=== PATIENT | female | born 1990 | race Caucasian/White ===

== ENCOUNTER 2016-05-16 19:28 | Emergency (ER) | payer OTHER ==
[~2016-05-16] VITALS: Ht 165.1 cm; Wt 76.0 kg
[~2016-05-16 19:28] MED LIST: ETON1IMP2 INTRAD; OXYC-57 PO
[2016-05-16 19:32] VITALS: TEMP 37.4; Ht 165.1 cm; Wt 76.0 kg
[2016-05-16] MEDS ORDERED: SODIUM CHLORIDE 0.9% 1000ML 1,000 ML IV STA (20:05)
[2016-05-16] MEDS ORDERED: ONDANSETRON INJ 2 MG/ML 2 ML VIAL IV STA (20:05)
--- NOTE | 2016-05-16 20:16 | EMERGENCY ROOM VISIT NOTE ---
History Report prepared by Wesleyibcameron: Becky Espino Under the Supervision of: Dr. Tylor Fung D.O. First contact with patient: 20:01 Chief Complaint: SHORTNESS OF BREATH Stated Complaint: SOB,DIZZY,NAUSEA,STOMACH PAIN,EXHAUSTED,8 WKS PREG Nursing Triage Summary: c/o shortness of breath and cough for several days unsure if she is or not. States " have not been to the dr. because i have no insurance." History of Present Illness The patient is a 25 year old female who presents to the Emergency Room with complaints of worsening shortness of breath beginning a few days prior to arrival. The patient states that she has been experiencing increased fatigue these past few days and yesterday she slept all day. She has also been experiencing nausea, vomiting, abdominal pain, dizziness and a cough. She also has been experiencing a decreased appetite. These all have been worsening over the past few days. The patient would also like to be checked for asthma. Occasionally the patient will experiencing swelling to her lower extremities. Patient denies vaginal discharge or bleeding. Her LNMP was 1 1/2 months ago. Source of History: patient Onset: past few days Position: other (global) Quality: other (shortness of breath) Timing: worsening Associated Symptoms: + abdominal pain, + cough, + nausea, + vomiting Review of Systems See HPI for pertinent positives & negatives. A total of 10 systems reviewed and were otherwise negative. Past Medical & Surgical Medical Problems: (1) Autistic Disorder, Residual State (2) Bronchitis (3) Hemoptysis Family History Patient reports no known family medical history. Social History Smoking Status: Never Smoker Smokeless Tobacco Use: Yes (1-2 times a day) Alcohol Use: occasionally Marital Status: single Housing Status: lives alone Occupation Status: employed Current/Historical Medications Scheduled Cephalexin Monohydrate (Keflex), 500 MG PO QID Allergies Uncoded Allergies: POLLENS AND DUST (Allergy, Unknown, itchy eyes and sneezing, 08/10/14) BLOOD THINNERS (Adverse Reaction, Severe, VONWILLEBRAND DISEASE, 05/16/16) Physical Exam Vital Signs Date Time Temp Pulse Resp B/P Pulse Ox O2 Delivery O2 Flow Rate FiO2 05/16/16 19:32 37.4 106 18 126/77 98 Room Air Physical Exam GENERAL: Patient is awake, alert, and in no acute distress. Patient is resting comfortably and showing no signs of anxiety EYES: The conjunctivae are clear. The pupils are round and reactive. EARS, NOSE, MOUTH AND THROAT: The nose is without any evidence of any deformity. Mucous membranes are moist tongue is midline NECK: The neck is nontender and supple. RESPIRATORY: Normal respiratory effort is noted there is no evidence of wheezing rhonchi or rales CARDIOVASCULAR: Regular rate and rhythm noted there no murmurs rubs or gallops normal S1 normal S2 GASTROINTESTINAL: The abdomen is soft. Bowel sounds are present in all quadrants. Abdomen is nontender MUSCULOSKELETAL/EXTREMITIES: There is no evidence of gross deformity full range of motion is noted in the hips and shoulders SKIN: There is no obvious evidence of any rash. There are no petechiae, pallor or cyanosis noted. NEUROLOGIC: Patient is awake alert and oriented x3 strength is symmetric patellar reflexes are 2+ bilaterally Medical Decision & Procedures ER Provider Diagnostic Interpretation: X-ray results as stated below per interpretation by me and the radiologist. SINGLE VIEW CHEST CLINICAL HISTORY: Generalized abdominal pain. . FINDINGS: An AP, portable, upright chest radiograph is compared to study dated 04/04/2016. The cardiomediastinal silhouette is unremarkable. The lungs and pleural spaces are clear. No pneumothorax is seen. The bony thorax is grossly intact. IMPRESSION: No active disease in the chest. Electronically signed by: Atul Mcmanus M.D. 05/16/2016 9:06 PM Dictated Date/Time: 05/16/2016 9:06 PM Laboratory Results 05/16/16 20:15 Red Blood Count 4.35, Mean Corpuscular Volume 85.5, Mean Corpuscular Hemoglobin 28.5, Mean Corpuscular Hemoglobin Concent 33.3, Mean Platelet Volume 10.8, Neutrophils (%) (Auto) 62.8, Lymphocytes (%) (Auto) 28.4, Monocytes (%) (Auto) 7.1, Eosinophils (%) (Auto) 0.8, Basophils (%) (Auto) 0.6, Neutrophils # (Auto) 4.55, Lymphocytes # (Auto) 2.05, Monocytes # (Auto) 0.51, Eosinophils # (Auto) 0.06, Basophils # (Auto) 0.04 05/16/16 20:15 Test 05/16/16 20:15 White Blood Count 7.23 K/uL (4.8-10.8) Red Blood Count 4.35 M/uL (4.2-5.4) Hemoglobin 12.4 g/dL (12.0-16.0) Hematocrit 37.2 % (37-47) Mean Corpuscular Volume 85.5 fL (80-100) Mean Corpuscular Hemoglobin 28.5 pg (25-34) Mean Corpuscular Hemoglobin Concent 33.3 g/dl (32-36) Platelet Count 283 K/uL (130-400) Mean Platelet Volume 10.8 fL (7.4-10.4) Neutrophils (%) (Auto) 62.8 % Lymphocytes (%) (Auto) 28.4 % Monocytes (%) (Auto) 7.1 % Eosinophils (%) (Auto) 0.8 % Basophils (%) (Auto) 0.6 % Neutrophils # (Auto) 4.55 K/uL (1.4-6.5) Lymphocytes # (Auto) 2.05 K/uL (1.2-3.4) Monocytes # (Auto) 0.51 K/uL (0.11-0.59) Eosinophils # (Auto) 0.06 K/uL (0-0.5) Basophils # (Auto) 0.04 K/uL (0-0.2) RDW Standard Deviation 39.2 fL (36.4-46.3) RDW Coefficient of Variation 12.6 % (11.5-14.5) Immature Granulocyte % (Auto) 0.3 % Immature Granulocyte # (Auto) 0.02 K/uL (0.00-0.02) Urine Color YELLOW Urine Appearance CLOUDY (CLEAR) Urine pH 7.0 (4.5-7.5) Urine Specific [place] 1.017 (1.000-1.030) Urine Protein NEG (NEG) Urine Glucose (UA) NEG (NEG) Urine Ketones NEG (NEG) Urine Occult Blood 1+ (NEG) Urine Nitrite NEG (NEG) Urine Bilirubin NEG (NEG) Urine Urobilinogen NEG (NEG) Urine Leukocyte Esterase SMALL (NEG) Urine WBC (Auto) >30 /hpf (0-5) Urine RBC (Auto) 0-4 /hpf (0-4) Urine Hyaline Casts (Auto) 1-5 /lpf (0-5) Urine Epithelial Cells (Auto) >30 /lpf (0-5) Urine Bacteria (Auto) 4+ (NEG) Anion Gap 14.0 mmol/L (3-11) Est Creatinine Clear Calc Drug Dose 135.2 ml/min Estimated GFR () 144.3 Estimated GFR (Non- 124.5 BUN/Creatinine Ratio 14.2 (10-20) Calcium Level 9.4 mg/dl (8.5-10.1) Total Bilirubin 0.2 mg/dl (0.2-1) Direct Bilirubin < 0.1 mg/dl (0-0.2) Aspartate Amino Transf (AST/SGOT) 15 U/L (15-37) Alanine Aminotransferase (ALT/SGPT) 20 U/L (12-78) Alkaline Phosphatase 107 U/L (45-117) Total Protein 8.3 gm/dl (6.4-8.2) Albumin 4.1 gm/dl (3.4-5.0) Lipase 147 U/L (73-393) Human Chorionic Gonadotropin, Qual NEG (NEG) Urine Opiates Screen NEG (NEG) Urine Methadone, Qualitative NEG (NEG) Urine Barbiturates NEG (NEG) Urine Phencyclidine (PCP) Level NEG (NEG) Ur Amphetamine/Methamphetamine NEG (NEG) MDMA (Ecstasy) Screen NEG (NEG) Urine Benzodiazepines Screen NEG (NEG) Urine Cocaine Metabolite NEG (NEG) Urine Marijuana (THC) NEG (NEG) Laboratory results per my review. Medications Administered Medications (Trade) Dose Ordered Sig/Yasmin Route Start Time Stop Time Status Last Admin Dose Admin Sodium Chloride (Nss 1000ml) 1,000 ml @ 999 mls/hr Q1H1M STAT IV 05/16/16 20:05 05/16/16 21:05 DC 05/16/16 20:18 999 MLS/HR Ondansetron HCl (Zofran Inj) 4 mg NOW STAT IV 05/16/16 20:05 05/16/16 20:06 DC 05/16/16 20:18 4 MG Ceftriaxone Sodium (Rocephin Inj) 1 gm NOW STAT IV 05/16/16 20:56 05/16/16 20:58 DC 05/16/16 21:15 1 GM ED Course 2001: The patient was evaluated in room C8. A complete history and physical examination were performed. 2005: Zofran Inj 4 mg IV, Sodium Chloride 1,000 ml @ 999 mls/hr IV. 2055: Rocephin Inj 1 gm IV. 2122: Upon reevaluation, the patient is hemodynamically stable. I discussed the results and treatment plan with her. She verbalized agreement of the treatment plan. She was discharged home. Medical Decision Differential diagnosis: Etiologies such as infections, reactive airway disease, pneumonia, pneumothorax , COPD, CHF, cardiac ischemia, pulmonary embolism, musculoskeletal, gastrointestinal, as well as others were entertained. Differential diagnosis: Etiologies such as gastroenteritis, food borne illness, infections, appendicitis , diverticulitis, inflammatory bowel disease, obstruction, GI bleed, biliary pathology, as well as others were entertained. The patient is a 25-year-old female who presented to the emergency department with multiple complaints including nausea and generalized weakness and was unsure if she had been . The patient was treated with IV fluids as well as IV antiemetics. She was also given IV antibiotics for presumed urinary tract infection after reviewing the patient's urinalysis findings. The patient was reevaluated multiple times. She was feeling much better on subsequent reevaluation. I discussed the patient's laboratory and radiographic studies with she was encouraged to rest and avoid any strenuous activity. She was also encouraged to call to schedule a follow-up appointment with a primary care physician and continue taking Motrin as directed for pain. She was encouraged to return to the emergency department immediately if symptoms change worsen or the need arises. Impression Primary Impression: UTI (urinary tract infection) Additional Impression: Generalized weakness Scribe Attestation The scribe's documentation has been prepared under my direction and personally reviewed by me in its entirety. I confirm that the note above accurately reflects all work, treatment, procedures, and medical decision making performed by me. Departure Information Dispostion Home / Self-Care Prescriptions Cephalexin Monohydrate (KEFLEX) 500 Mg Cap 500 MG PO QID, #28 CAP Prov: Tylor Fung, DO 05/16/16 Referrals No Doctor, Assigned (PCP) Forms HOME CARE DOCUMENTATION FORM, IMPORTANT VISIT INFORMATION, Work Instructions Patient Instructions My [facility], Urinary Tract Infection - [facility] Additional Instructions Schedule follow-up appointment with the family doctor for as soon as possible. Drink plenty of clear liquids. Continue using Motrin as directed for pain. Rest and avoid any strenuous activity. Problem Qualifiers
[2016-05-16 20:32] LABS: BASO % 0.6 %; BASO ABS # 0.04 K/uL (0-0.2); COMPLETE YES; EOS % 0.8 %; HEMATOCRIT 37.2 % (37-47); IG% 0.3 %; LYMPH % 28.4 %; LYMPH ABS # 2.05 K/uL (1.2-3.4); MEAN CELL VOLUME 85.5 fL (80-100); MEAN CORPUSCULAR HEMOGLOBIN 28.5 pg (25-34); MEAN CORPUSCULAR HGB CONC 33.3 g/dl (32-36); MEAN PLATELET VOLUME 10.8 fL (7.4-10.4); MONO % 7.1 %; NEUT % 62.8 %; PLATELET COUNT 283 K/uL (130-400); RED BLOOD COUNT 4.35 M/uL (4.2-5.4); WHITE BLOOD COUNT 7.23 K/uL (4.8-10.8)
[2016-05-16 20:39] LABS: URINE APPEARANCE CLOUDY (CLEAR); URINE BILIRUBIN NEG (NEG); URINE COLOR YELLOW; URINE EPITHELIAL CELL AUTO >30 /lpf (0-5); URINE NITRITE NEG (NEG); URINE SPECIFIC GRAVITY 1.017 (1.000-1.030); UROBILINOGEN NEG (NEG)
[2016-05-16 20:41] LABS: MANUAL MICROSCOPIC REQUIRED? NO; REVIEW REQ? NO
[2016-05-16 20:56] LABS: ALT/SGPT 20 U/L (12-78); BLOOD UREA NITROGEN 9 mg/dl (7-18); BUN/CREATININE RATIO 14.2 (10-20); CALCIUM 9.4 mg/dl (8.5-10.1); CARBON DIOXIDE 24 mmol/L (21-32); CHLORIDE 103 mmol/L (98-107); CREATININE 0.66 mg/dl (0.60-1.20); GLUCOSE 99 mg/dl (70-99); POTASSIUM 3.7 mmol/L (3.5-5.1); SODIUM 141 mmol/L (136-145)
[2016-05-16] MEDS ORDERED: CEFTRIAXONE SOD INJ 1 GM ADDVIAL IV STA (20:56)
[2016-05-16 20:59] LABS: ALKALINE PHOSPHATASE 107 U/L (45-117); AST/SGOT 15 U/L (15-37)
[2016-05-16 21:04] LABS: PREG INTERNAL NEGATIVE QC NEG CLEAR BACKGROUND; PREG INTERNAL POSITIVE QC POS CONTROL LINE
--- NOTE | 2016-05-16 21:08 | DIAGNOSTIC IMAGING REPORT ---
SINGLE VIEW CHEST CLINICAL HISTORY: Generalized abdominal pain. . FINDINGS: An AP, portable, upright chest radiograph is compared to study dated 04/04/2016. The cardiomediastinal silhouette is unremarkable. The lungs and pleural spaces are clear. No pneumothorax is seen. The bony thorax is grossly intact. IMPRESSION: No active disease in the chest. Electronically signed by: Atul Mcmanus M.D. 05/16/2016 9:06 PM Dictated Date/Time: 05/16/2016 9:06 PM
[2016-05-16 21:12] LABS: BENZODIAZEPINE, URINE NEG (NEG); COCAINE,URINE NEG (NEG); PHENCYCLIDINE, URINE NEG (NEG)
[2016-05-16] MEDS ORDERED: CEPH500C2 PO (21:22)
[2016-05-16 21:45] VITALS: BP 115/66; PULSE 80; O2SAT 97
== END 2016-05-16 21:45 | disposition home or self-care (01) ==
LOC: C.EDB 19:29 → C.EDC 21:45
DX: N39.0 Urinary tract infection, site not specified (principal); R53.1 Weakness; F84.0 Autistic disorder

== ENCOUNTER 2016-06-09 15:30 | Emergency (ER) | payer OTHER ==
[~2016-06-09] VITALS: Ht 167.6 cm; Wt 78.7 kg
[~2016-06-09 15:30] MED LIST changes: +CEPH500C2 PO; -ETON1IMP2 INTRAD; -OXYC-57 PO
[2016-06-09] MEDS: ONDANSETRON INJ 2 MG/ML 2 ML VIAL IV STA ×2 (15:30→16:30)
[2016-06-09] MEDS: SODIUM CHLORIDE 0.9% 1000ML 1,000 ML IV STA ×2 (15:30→16:30)
[2016-06-09 15:33] VITALS: Ht 167.6 cm; Wt 78.7 kg
[2016-06-09 16:20] LABS: BASO % 0.2 %; BASO ABS # 0.02 K/uL (0-0.2); COMPLETE YES; EOS % 0.3 %; HEMATOCRIT 35.9 % (37-47); IG% 0.3 %; LYMPH % 19.1 %; LYMPH ABS # 2.13 K/uL (1.2-3.4); MEAN CELL VOLUME 84.7 fL (80-100); MEAN CORPUSCULAR HEMOGLOBIN 28.3 pg (25-34); MEAN CORPUSCULAR HGB CONC 33.4 g/dl (32-36); MEAN PLATELET VOLUME 10.8 fL (7.4-10.4); MONO % 5.3 %; NEUT % 74.8 %; PLATELET COUNT 239 K/uL (130-400); RED BLOOD COUNT 4.24 M/uL (4.2-5.4); WHITE BLOOD COUNT 11.15 K/uL (4.8-10.8)
[2016-06-09 16:44] LABS: CALCIUM 8.9 mg/dl (8.5-10.1); CREATININE 0.61 mg/dl (0.60-1.20); POTASSIUM 3.5 mmol/L (3.5-5.1)
[2016-06-09 16:46] LABS: ALB/GLOB RATIO 0.9 (0.9-2)
[2016-06-09 18:02] LABS: URINE APPEARANCE CLOUDY (CLEAR); URINE BILIRUBIN NEG (NEG); URINE COLOR YELLOW; URINE EPITHELIAL CELL AUTO >30 /lpf (0-5); URINE NITRITE NEG (NEG); URINE SPECIFIC GRAVITY 1.019 (1.000-1.030); UROBILINOGEN NEG (NEG); ZZUR CULT IF INDIC CLEAN CATCH YES
[2016-06-09 18:07] LABS: MANUAL MICROSCOPIC REQUIRED? NO; REVIEW REQ? YES
[2016-06-09 18:23] LABS: URINE MUCUS PRESENT (NONE PRSENT)
--- NOTE | 2016-06-09 19:55 | DIAGNOSTIC IMAGING REPORT ---
RENAL ULTRASOUND HISTORY: Flank pain flank pain COMPARISON: None. FINDINGS: Right kidney: Maximum dimension 9.7 cm. No evidence for hydronephrosis. Normal corticomedullary differentiation and cortical thickness. Left kidney: Maximum dimension 11.0 cm. No evidence for hydronephrosis. Normal corticomedullary differentiation and cortical thickness. Bladder: No bladder wall thickening. The bilateral ureteral jets were identified. IMPRESSION: Normal renal ultrasound. Electronically signed by: Travis Bess M.D. 06/09/2016 7:54 PM Dictated Date/Time: 06/09/2016 7:53 PM
--- NOTE | 2016-06-09 19:57 | DIAGNOSTIC IMAGING REPORT ---
EXAMINATION: PELVIC ULTRASOUND CLINICAL HISTORY: pelvic pain PAIN COMPARISON STUDY: None FINDINGS: The uterus measured 8.1 cm. The endometrial stripe measured 3 mm. The right ovary measured 4.0 cm maximum dimension 3.0 cm cyst. Normal vascular flow.. The left ovary measured maximum dimension 3.5 cm. Normal vascular flow. There is no ultrasonographic evidence of ovarian torsion. It should be noted that ovarian torsion can be present with normal Doppler ultrasonographic findings. There was no evidence of pathologic free pelvic fluid. IMPRESSION: 1. 3.0 cm right ovarian cyst. 2. Otherwise negative pelvic ultrasound Electronically signed by: Travis Bess M.D. 06/09/2016 7:55 PM Dictated Date/Time: 06/09/2016 7:54 PM
--- NOTE | 2016-06-09 20:29 | EMERGENCY ROOM VISIT NOTE ---
History First contact with patient: 15:41 Chief Complaint: FLANK PAIN Stated Complaint: PAIN IN SIDES, VOMITING, 10-12 WKS. History of Present Illness The patient is a 25 year old female who presents to the Emergency Department by private vehicle for evaluation of her flank pain and pelvic pain. She reports that she may be . She has not taken home test. She reports that her last menstrual period was September. She denies any vaginal bleeding or spotting. She denies any vaginal discharge or drainage. She reports no burning with urination or blood in her urine. She reports no upper abdominal pain. She denies any previous abdominal surgeries. She does report a significant past medical history of von Willebrand's disease. She rates her current discomfort as an 8/10. She denies any fevers, chills, headaches, distance, lightheadedness, chest pain, palpitations, shortness of breath, hemoptysis, nausea, vomiting, hematochezia, or melena. Review of Systems A complete 10-point Review of Systems was discussed with the patient, with pertinent positives and negatives listed in the History of Present Illness. All remaining Review of Systems questions can be considered negative unless otherwise specified. Past Medical/Surgical History Medical Problems: (1) Autistic Disorder, Residual State (2) Bronchitis (3) Hemoptysis Family History Patient reports no known family medical history. Social History Smoking Status: Never Smoker Alcohol Use: occasionally Marital Status: single Housing Status: lives alone Occupation Status: employed Current/Historical Medications No Active Prescriptions or Reported Meds Allergies Uncoded Allergies: POLLENS AND DUST (Allergy, Unknown, itchy eyes and sneezing, 08/10/14) BLOOD THINNERS (Adverse Reaction, Severe, VONWILLEBRAND DISEASE, 05/16/16) Physical Exam Vital Signs Date Time Temp Pulse Resp B/P Pulse Ox O2 Delivery O2 Flow Rate FiO2 06/09/16 20:55 36.9 81 18 115/72 99 06/09/16 20:54 81 115/72 99 Room Air 06/09/16 20:15 77 18 115/69 99 06/09/16 18:11 88 18 96/64 98 Room Air 06/09/16 15:33 36.9 110 16 112/78 95 Room Air Pain Rating (0-10): 8 Physical Exam VITAL SIGNS - Vital signs and nursing notes were reviewed. GENERAL - 25-year-old female appearing her stated age who is in no acute distress. Communicates well with provider and answers questions appropriately. LUNGS - Chest wall symmetric without accessory muscle use, intercostals retractions, or central cyanosis. Normal vesicular breath sounds CTA B/L. No wheezes, rales, or rhonchi appreciated. CARDIAC - RRR with S1/S2. No murmur, rubs, or gallops appreciated. ABDOMEN - Abdominal contour flat and without pulsations or visible masses. Negative Gaylord's or [place] Flowers's Signs. BS normoactive all four quadrants. Mild tenderness to palpation appreciated in the suprapubic area. No guarding. No Rebound Tenderness. Negative Rovsing's. Negative Norris's. No palpable masses , hepatosplenomegaly, or ascites noted. EXTREMITIES - No clubbing or peripheral cyanosis. No pretibial edema present. +3 /5 radial and dorsalis pedis pulses palpated throughout. PSYCH - A&Ox3 and cooperates fully with examiner. Pt is very pleasant and interacts well with examiner. Medical Decision & Procedures ER Provider Diagnostic Interpretation: Radiological imaging and reports were reviewed by myself. Radiologist's Interpretation as follows: EXAMINATION: PELVIC ULTRASOUND CLINICAL HISTORY: pelvic pain PAIN COMPARISON STUDY: None FINDINGS: The uterus measured 8.1 cm. The endometrial stripe measured 3 mm. The right ovary measured 4.0 cm maximum dimension 3.0 cm cyst. Normal vascular flow.. The left ovary measured maximum dimension 3.5 cm. Normal vascular flow. There is no ultrasonographic evidence of ovarian torsion. It should be noted that ovarian torsion can be present with normal Doppler ultrasonographic findings. There was no evidence of pathologic free pelvic fluid. IMPRESSION: 1. 3.0 cm right ovarian cyst. 2. Otherwise negative pelvic ultrasound RENAL ULTRASOUND HISTORY: Flank pain flank pain COMPARISON: None. FINDINGS: Right kidney: Maximum dimension 9.7 cm. No evidence for hydronephrosis. Normal corticomedullary differentiation and cortical thickness. Left kidney: Maximum dimension 11.0 cm. No evidence for hydronephrosis. Normal corticomedullary differentiation and cortical thickness. Bladder: No bladder wall thickening. The bilateral ureteral jets were identified. IMPRESSION: Normal renal ultrasound. Laboratory Results 06/09/16 16:01 Red Blood Count 4.24, Mean Corpuscular Volume 84.7, Mean Corpuscular Hemoglobin 28.3, Mean Corpuscular Hemoglobin Concent 33.4, Mean Platelet Volume 10.8, Neutrophils (%) (Auto) 74.8, Lymphocytes (%) (Auto) 19.1, Monocytes (%) (Auto) 5.3, Eosinophils (%) (Auto) 0.3, Basophils (%) (Auto) 0.2, Neutrophils # (Auto) 8.35, Lymphocytes # (Auto) 2.13, Monocytes # (Auto) 0.59, Eosinophils # (Auto) 0.03, Basophils # (Auto) 0.02 06/09/16 16:01 Test 06/09/16 16:01 White Blood Count 11.15 K/uL (4.8-10.8) Red Blood Count 4.24 M/uL (4.2-5.4) Hemoglobin 12.0 g/dL (12.0-16.0) Hematocrit 35.9 % (37-47) Mean Corpuscular Volume 84.7 fL (80-100) Mean Corpuscular Hemoglobin 28.3 pg (25-34) Mean Corpuscular Hemoglobin Concent 33.4 g/dl (32-36) Platelet Count 239 K/uL (130-400) Mean Platelet Volume 10.8 fL (7.4-10.4) Neutrophils (%) (Auto) 74.8 % Lymphocytes (%) (Auto) 19.1 % Monocytes (%) (Auto) 5.3 % Eosinophils (%) (Auto) 0.3 % Basophils (%) (Auto) 0.2 % Neutrophils # (Auto) 8.35 K/uL (1.4-6.5) Lymphocytes # (Auto) 2.13 K/uL (1.2-3.4) Monocytes # (Auto) 0.59 K/uL (0.11-0.59) Eosinophils # (Auto) 0.03 K/uL (0-0.5) Basophils # (Auto) 0.02 K/uL (0-0.2) RDW Standard Deviation 39.4 fL (36.4-46.3) RDW Coefficient of Variation 12.9 % (11.5-14.5) Immature Granulocyte % (Auto) 0.3 % Immature Granulocyte # (Auto) 0.03 K/uL (0.00-0.02) Urine Color YELLOW Urine Appearance CLOUDY (CLEAR) Urine pH 6.0 (4.5-7.5) Urine Specific [place] 1.019 (1.000-1.030) Urine Protein NEG (NEG) Urine Glucose (UA) NEG (NEG) Urine Ketones NEG (NEG) Urine Occult Blood NEG (NEG) Urine Nitrite NEG (NEG) Urine Bilirubin NEG (NEG) Urine Urobilinogen NEG (NEG) Urine Leukocyte Esterase MODERATE (NEG) Urine WBC (Auto) >30 /hpf (0-5) Urine RBC (Auto) 0-4 /hpf (0-4) Urine Hyaline Casts (Auto) 1-5 /lpf (0-5) Urine Epithelial Cells (Auto) >30 /lpf (0-5) Urine Bacteria (Auto) 4+ (NEG) Urine Pathogenic Casts /lpf (0) Urine Mucus PRESENT (NONE PRSENT) Urine Yeast (Auto) (NONE PRSENT) Urine Test NEG (NEG) Anion Gap 11.0 mmol/L (3-11) Est Creatinine Clear Calc Drug Dose 151.8 ml/min Estimated GFR () 148.1 Estimated GFR (Non- 127.8 BUN/Creatinine Ratio 12.0 (10-20) Calcium Level 8.9 mg/dl (8.5-10.1) Magnesium Level 2.0 mg/dl (1.8-2.4) Total Bilirubin 0.3 mg/dl (0.2-1) Aspartate Amino Transf (AST/SGOT) 12 U/L (15-37) Alanine Aminotransferase (ALT/SGPT) 17 U/L (12-78) Alkaline Phosphatase 103 U/L (45-117) Total Protein 7.6 gm/dl (6.4-8.2) Albumin 3.7 gm/dl (3.4-5.0) Globulin 3.9 gm/dl (2.5-4.0) Albumin/Globulin Ratio 0.9 (0.9-2) Lipase 153 U/L (73-393) Human Chorionic Gonadotropin, Quant < 1 mIU/mL Medications Administered Medications (Trade) Dose Ordered Sig/Yasmin Route Start Time Stop Time Status Last Admin Dose Admin Sodium Chloride (Nss 1000ml) 1,000 ml @ 999 mls/hr Q1H1M STAT IV 06/09/16 15:48 06/09/16 16:48 DC 06/09/16 16:30 999 MLS/HR Ondansetron HCl (Zofran Inj) 4 mg NOW STAT IV 06/09/16 15:48 06/09/16 15:50 DC 06/09/16 16:30 4 MG ED Course Patient was seen and evaluate by myself. Labs were drawn, saline lock in place. The patient was hydrated with a 1000 mL normal saline bolus. She received 4 mg Zofran intravenously for nausea. Pelvic ultrasound and renal ultrasounds were obtained. Laboratory results and showed a mild leukocytosis. The patient is not anemic. There are no significant electrolyte abnormalities. Urinalysis was unremarkable for infection. Urine dip was negative for . Quantitative urinalysis was negative as well. Imaging results as above. Laboratory results and imaging studies were reviewed with the patient who acknowledges understanding. She was educated on worrisome symptoms for return visit to the emergency department. Patient discharged home afebrile and in good condition. Medical Decision Given the patient's presentation and stated complaints, I did elect to perform the above-mentioned workup. The patient presents today complaining of pelvic pain. She has no vaginal bleeding or discharge. Patient is requesting testing. testing was completely negative. She has a mild leukocytosis. Urinalysis does not suggest infection. Retroperitoneal ultrasound and pelvic ultrasound were obtained and found to be unremarkable. The patient follow closely with her primary care provider from today's visit. She will return for any changing/worsening symptoms. Patient discharged home afebrile and in good condition. In the evaluation and treatment of this patient, the following differential diagnoses were considered: Bladder Cancer, Chlamydial Genitourinary Infection, Cystitis, Herpes Simplex, Interstitial Cystitis, PID, Pyelonephritis, Urethritis , or Vaginitis. Impression Primary Impression: Pelvic pain Additional Impression: Flank pain Departure Information Dispostion Home / Self-Care Condition GOOD Prescriptions No Active Prescriptions or Reported Meds Referrals Tavo Durant M.D. (PCP) Patient Instructions My [facility] Additional Instructions Follow-up with your primary care provider from today's visit. For pain control, you can use the following [id number] medicines (if >12 yo): - Regular strength (325mg/tab) Tylenol (acetaminophen) 2 tabs every 4-6 hours as needed. Do not exceed 12 tablets in a 24 hour period. Avoid taking more than 4 grams (4000 mg) of Tylenol per day. This includes any other sources of acetaminophen you may take on a regular basis. - Regular strength (200 mg/tab) Advil (ibuprofen) 1-2 tabs every 4-6 hours as needed. Do not exceed a dose of 3200 mg per day. Return for any changing or worsening symptoms. Problem Qualifiers
[2016-06-09 20:55] VITALS: BP 115/72; PULSE 81; TEMP 36.9; O2SAT 99
== END 2016-06-09 20:57 | disposition home or self-care (01) ==
LOC: C.EDB 15:32 → C.EDC 20:57
DX: R10.30 Lower abdominal pain, unspecified (principal); R10.2 Pelvic and perineal pain; F84.0 Autistic disorder

== ENCOUNTER 2016-07-01 23:10 | Emergency (ER) | payer OTHER ==
[~2016-07-01] VITALS: Ht 165.1 cm; Wt 77.0 kg
[2016-07-01 23:17] VITALS: TEMP 37.1; Ht 165.1 cm; Wt 77.0 kg
[2016-07-01] MEDS ORDERED: TROLAMINE SALICYLATE 10% CRM 255 APPLN/85 GM TUBE EXT STA (23:32)
[2016-07-01 23:45] LABS: BASO % 0.3 %; BASO ABS # 0.03 K/uL (0-0.2); COMPLETE YES; EOS % 1.3 %; HEMATOCRIT 38.5 % (37-47); IG% 0.2 %; LYMPH % 24.4 %; LYMPH ABS # 2.49 K/uL (1.2-3.4); MEAN CELL VOLUME 86.3 fL (80-100); MEAN CORPUSCULAR HEMOGLOBIN 28.9 pg (25-34); MEAN CORPUSCULAR HGB CONC 33.5 g/dl (32-36); MEAN PLATELET VOLUME 10.3 fL (7.4-10.4); MONO % 9.6 %; NEUT % 64.2 %; PLATELET COUNT 283 K/uL (130-400); RED BLOOD COUNT 4.46 M/uL (4.2-5.4); WHITE BLOOD COUNT 10.22 K/uL (4.8-10.8)
[2016-07-01] MEDS ORDERED: OPTIRAY 320 IV PRN (23:45)
[2016-07-01 23:50] VITALS: O2SAT 98
[2016-07-01 23:53] LABS: ISTAT CREATININE 0.7 mg/dl (0.6-1.3); ISTAT HEMOGLOBIN 13.3 g/dl (12.0-16.0); ISTAT IONIZED CALCIUM 1.28 mmol/l (1.12-1.32)
[2016-07-02 00:05] LABS: ALT/SGPT 18 U/L (12-78); BLOOD UREA NITROGEN 13 mg/dl (7-18); CALCIUM 9.4 mg/dl (8.5-10.1); CARBON DIOXIDE 26 mmol/L (21-32); CHLORIDE 104 mmol/L (98-107); CREATININE 0.74 mg/dl (0.60-1.20); GLUCOSE 86 mg/dl (70-99); POTASSIUM 3.8 mmol/L (3.5-5.1); SODIUM 141 mmol/L (136-145)
[2016-07-02 00:10] LABS: ALKALINE PHOSPHATASE 135 U/L (45-117); AST/SGOT 10 U/L (15-37); PREG INTERNAL NEGATIVE QC NEG CLEAR BACKGROUND; PREG INTERNAL POSITIVE QC POS CONTROL LINE
--- NOTE | 2016-07-02 01:04 | EMERGENCY ROOM VISIT NOTE ---
History First contact with patient: 23:22 Chief Complaint: CHEST PAIN Stated Complaint: CHEST/RIB/RT SHOULDER/BACK PAIN Nursing Triage Summary: Chest and rib pain that radiates into her right shoulder. Pain has been going on for several days. History of Present Illness The patient is a 25 year old female who presents to the Emergency Room with complaints of chest pain, short of breath and back pain for the past day. Patient is on control and has von Willebrand's disease. She is not on blood thinners or antiplatelets. She describes the pain as aching, ranging in severity 6 out of 10. Nothing makes it better or worse. No injury to the area. Patient denies fever, chills, cough, congestion, abdominal pain, leg pain or swelling, numbness, tingling. Review of Systems See HPI for pertinent positives & negatives. A total of 10 systems reviewed and were otherwise negative. Past Medical/Surgical History Medical Problems: (1) Autistic Disorder, Residual State (2) Bronchitis (3) Hemoptysis Family History Patient reports no known family medical history. Social History Smoking Status: Never Smoker Alcohol Use: occasionally Marital Status: single Housing Status: lives alone Occupation Status: employed Current/Historical Medications No Active Prescriptions or Reported Meds Allergies Uncoded Allergies: POLLENS AND DUST (Allergy, Unknown, itchy eyes and sneezing, 08/10/14) BLOOD THINNERS (Adverse Reaction, Severe, VONWILLEBRAND DISEASE, 05/16/16) Physical Exam Vital Signs Date Time Temp Pulse Resp B/P Pulse Ox O2 Delivery O2 Flow Rate FiO2 07/01/16 23:52 98 Room Air 07/01/16 23:50 98 Room Air 07/01/16 23: 37.1 103 18 115/77 98 Room Air Physical Exam VITALS: Vitals are noted on the nurse's note and reviewed by myself. Vital signs stable. GENERAL: Pleasant female, in no acute distress, nondiaphoretic, well-developed well-nourished. SKIN: The skin was without rashes, erythema, edema, or bruising. There is no tenting of the skin. Capillary reflex less than 2 seconds. HEAD: Normocephalic atraumatic. EARS: External auditory canals clear, tympanic membranes pearly guy without erythema or effusion bilaterally. EYES: Pupils equal round and reactive to light and accommodation. Conjunctivae without injection, sclerae without icterus. Extraocular movements intact. NOSE: Patent, turbinates without inflammation or discharge. MOUTH: Mucous membranes moist. Pharynx without erythema or exudate. Uvula midline. Airway patent. Tongue does not deviate. NECK: Supple without nuchal rigidity. No lymphadenopathy. No thyromegaly. Cervical spine is nontender. No JVD. HEART: Regular rate and rhythm without murmurs gallops or rubs. LUNGS: Clear to auscultation bilaterally without wheezes, rales or rhonchi. No dullness to percussion. No retractions or accessory muscle use. ABDOMEN: Positive bowel sounds x 4. Normal tympanic percussion. Soft, nontender, without masses or organomegaly. Norris sign negative. No guarding or rebound tenderness. MUSCULOSKELETAL: No muscle atrophy, erythema, or edema noted. No thoracic or lumbar tenderness on exam. NEURO: Patient was alert and oriented to person place and time. Normal sensation to light and sharp touch. No focal neurological deficits. Medical Decision & Procedures Laboratory Results 07/01/16 23:30 Red Blood Count 4.46, Mean Corpuscular Volume 86.3, Mean Corpuscular Hemoglobin 28.9, Mean Corpuscular Hemoglobin Concent 33.5, Mean Platelet Volume 10.3, Neutrophils (%) (Auto) 64.2, Lymphocytes (%) (Auto) 24.4, Monocytes (%) (Auto) 9.6, Eosinophils (%) (Auto) 1.3, Basophils (%) (Auto) 0.3, Neutrophils # (Auto) 6.57, Lymphocytes # (Auto) 2.49, Monocytes # (Auto) 0.98, Eosinophils # (Auto) 0.13, Basophils # (Auto) 0.03 07/01/16 23:30 Test 07/01/16 23:30 07/01/16 23:37 White Blood Count 10.22 K/uL (4.8-10.8) Red Blood Count 4.46 M/uL (4.2-5.4) Hemoglobin 12.9 g/dL (12.0-16.0) Hematocrit 38.5 % (37-47) Mean Corpuscular Volume 86.3 fL (80-100) Mean Corpuscular Hemoglobin 28.9 pg (25-34) Mean Corpuscular Hemoglobin Concent 33.5 g/dl (32-36) Platelet Count 283 K/uL (130-400) Mean Platelet Volume 10.3 fL (7.4-10.4) Neutrophils (%) (Auto) 64.2 % Lymphocytes (%) (Auto) 24.4 % Monocytes (%) (Auto) 9.6 % Eosinophils (%) (Auto) 1.3 % Basophils (%) (Auto) 0.3 % Neutrophils # (Auto) 6.57 K/uL (1.4-6.5) Lymphocytes # (Auto) 2.49 K/uL (1.2-3.4) Monocytes # (Auto) 0.98 K/uL (0.11-0.59) Eosinophils # (Auto) 0.13 K/uL (0-0.5) Basophils # (Auto) 0.03 K/uL (0-0.2) RDW Standard Deviation 41.4 fL (36.4-46.3) RDW Coefficient of Variation 13.0 % (11.5-14.5) Immature Granulocyte % (Auto) 0.2 % Immature Granulocyte # (Auto) 0.02 K/uL (0.00-0.02) Est Creatinine Clear Calc Drug Dose 121.3 ml/min Estimated GFR () 132.4 Estimated GFR (Non- 114.2 BUN/Creatinine Ratio 17.0 (10-20) Calcium Level 9.4 mg/dl (8.5-10.1) Total Bilirubin 0.2 mg/dl (0.2-1) Direct Bilirubin < 0.1 mg/dl (0-0.2) Aspartate Amino Transf (AST/SGOT) 10 U/L (15-37) Alanine Aminotransferase (ALT/SGPT) 18 U/L (12-78) Alkaline Phosphatase 135 U/L (45-117) Troponin I < 0.015 ng/ml (0-0.045) Total Protein 8.5 gm/dl (6.4-8.2) Albumin 3.9 gm/dl (3.4-5.0) Lipase 211 U/L (73-393) Human Chorionic Gonadotropin, Qual NEG (NEG) Bedside Hemoglobin 13.3 g/dl (12.0-16.0) Bedside Hematocrit 39 % (37-47) Bedside Sodium 143 mEq/L (135-144) Bedside Potassium 3.9 mEq/L (3.3-5.0) Bedside Chloride 101 mEq/L (101-112) Bedside Total CO2 28 mEq/l (24-31) Anion Gap 19.0 mmol/L (16-25) Bedside Blood Urea Nitrogen 14 mg/dl (7-18) Bedside Creatinine 0.7 mg/dl (0.6-1.3) Bedside Glucose (other) 90 mg/dl (70-99) Bedside Ionized Calcium ([place]ie) 1.28 mmol/l (1.12-1.32) Medications Administered Medications (Trade) Dose Ordered Sig/Yasmin Route Start Time Stop Time Status Last Admin Dose Admin Trolamine Salicylate (Myoflex Cream) 1 appln NOW STAT EXT 07/01/16 23:32 07/01/16 23:35 DC 07/01/16 23:54 1 APPLN ED Course Prior records/ancillary studies reviewed. Triage Nursing notes reviewed. Additional history obtained from family. The patient's history was concerning for chest pain. Differential diagnosis: Etiologies such as cardiac ischemia, aortic dissection, pulmonary embolism, pneumonia, pneumothorax, musculoskeletal, infections, pericarditis, myocarditis , esophageal rupture, gastrointestinal, as well as others were entertained. Physical examination: As above. ER treatment provided: myoflex cream On reassessment the patient felt better. Diagnostic interpretation by me: The electrocardiogram was negative for pathologic change. Normal sinus, normal intervals, no acute ST-T wave changes. Impression normal sinus rhythm interpreted by myself The labs revealed neg troponin Imaging studies: Chest x-ray as above CT CHEST With Contrast: No evidence of filling defect to suggest pulmonary embolism Thoracic aorta within limits No pericardial or pleural effusion No focal consolidation Radiologist: Saran Hathaway M.D. Exam and history seem consistent with noncardiac chest pain. Patient unremarkable workup as above. No PE. She is advised to use the medications as directed and to follow-up family care in a few days or here in the ER sooner for chest pain, difficulty breathing, worsening signs or symptoms or as needed. Patient had a negative troponin. CT was negative. Normal EKG. She was well- appearing.By the evaluation outlined above emergent etiologies such as cardiac ischemia, aortic dissection, pulmonary embolism, pneumonia, pneumothorax, infections, pericarditis, myocarditis, gastrointestinal, as well as others were deemed relatively unlikely. The pt informed about the findings as listed above. All questions were answered and pleased with the treatment. Return instructions were outlined and the patient was discharged in stable condition. Referral: The patient was referred back to primary care physician for follow-up in 2 to 3 days for a recheck of the current condition. Case reviewed with my attending Medical Decision As above Impression Primary Impression: Non-cardiac chest pain Additional Impression: Thoracic myofascial strain Departure Information Dispostion Home / Self-Care Condition GOOD Prescriptions No Active Prescriptions or Reported Meds Referrals Tavo Durant M.D. (PCP) Patient Instructions My [facility] Additional Instructions Myoflex cream: Apply 3 times a day to the affected area Acetaminophen(Tylenol) may be used for fever or pain. Use 1000mg every six hours as needed. Avoid using more than 3000mg in a 24 hour period. Rest and drink plenty of fluids as tolerated. Continue current medications. Avoid strenuous activities and anything that worsens your pain. Resume normal activities once your symptoms resolve. Return to the ER immediately for worsening or persistent back pain, abdominal pain, vomiting, fevers, chest pains, difficulty breathing, worsening of your condition, or as needed. Follow up with your primary physician in 2-3 days for a recheck of your current condition. Problem Qualifiers
[2016-07-02 01:08] VITALS: BP 113/72; PULSE 72; O2SAT 97
--- NOTE | 2016-07-02 06:37 | DIAGNOSTIC IMAGING REPORT ---
CHEST ONE VIEW PORTABLE CLINICAL HISTORY: Atypical chest pain COMPARISON STUDY: 05/16/2016 FINDINGS: The cardiac and mediastinal contours are normal. There is no evidence of focal pulmonary consolidation. There is no evidence of failure. No pleural effusions are visualized.[ IMPRESSION: No active disease in the chest. Electronically signed by: Sawyer Ashford M.D. 07/02/2016 6:36 AM Dictated Date/Time: 07/02/2016 6:36 AM
--- NOTE | 2016-07-02 06:49 | DIAGNOSTIC IMAGING REPORT ---
CT ANGIOGRAM OF THE CHEST CLINICAL HISTORY: Atypical chest pain shortness of breath COMPARISON STUDY: Chest x-ray dated 07/01/2016 TECHNIQUE: Following the IV administration of 90 mL of Optiray-320, CT angiogram of the thorax was performed from the thoracic inlet to the lung bases utilizing the pulmonary embolus protocol. Images are reviewed in the axial, sagittal, and coronal planes. IV contrast was administered without complication. MIP imaging was performed. CT DOSE: 247.79 mGy.cm FINDINGS: No pathologically enlarged axillary mediastinal or hilar lymph nodes were visualized. There was no evidence of thoracic aortic dilatation. There were no pulmonary artery filling defects to indicate acute pulmonary embolism. There is a variant right upper lobe pulmonary vein. No pleural effusions are visualized. There was no evidence of focal pulmonary consolidation. IMPRESSION: No CT evidence of acute pulmonary embolism. No evidence of focal pulmonary consolidation. Electronically signed by: Sawyer Ashford M.D. 07/02/2016 6:48 AM Dictated Date/Time: 07/02/2016 6:44 AM
== END 2016-07-02 01:15 | disposition home or self-care (01) ==
LOC: C.EDB 23:11
DX: S29.002A Unspecified injury of muscle and tendon of back wall of thorax, initial encounter (principal); X58.XXXA Exposure to other specified factors, initial encounter; R07.89 Other chest pain; Z79.3 Long term (current) use of hormonal contraceptives; D68.0 Von Willebrand disease; F84.0 Autistic disorder

== ENCOUNTER 2016-10-22 16:33 | Emergency (ER) | payer OTHER ==
[~2016-10-22] VITALS: Ht 167.6 cm; Wt 78.3 kg
[2016-10-22 16:37] VITALS: Ht 167.6 cm; Wt 78.3 kg
[2016-10-22] MEDS ORDERED: HYDROCODONE/ACETAMOPHEN 5/325MG TAB PO STA (16:45)
--- NOTE | 2016-10-22 16:49 | EMERGENCY ROOM VISIT NOTE ---
History First contact with patient: 16:40 Chief Complaint: FOOT PAIN Stated Complaint: SWOLLEN RT FOOT BRUISED,RIGHT ANKLE HURTS History of Present Illness The patient is a 26 year old female who presents to the Emergency Room via private vehicle accompanied by male with complaints of "swollen right foot bruise, right ankle hurts". The patient states that about 3 days ago, she was walking and heard an audible pop from the right medial malleolar region. She points to that region and the anterior foot is location of pain that she rates as a 7/10. She feels at the region has become bruised slightly, and subtly swollen. Pain is worse with weightbearing. There is slight decreased range of motion secondary to pain. She denies any chance of . Over-the- counter pain medication has not provided relief. She does have Von Willebrand Disease but has not had to administer any medication in the past secondary to bleeding. Review of Systems A complete 6-point Review of Systems was discussed with the patient, with pertinent positives and negatives listed in the History of Present Illness. All remaining Review of Systems questions can be considered negative unless otherwise specified. Past Medical/Surgical History Medical Problems: (1) Autistic Disorder, Residual State (2) Bronchitis (3) Hemoptysis Family History Patient reports no known family medical history. Von Willebrand Disease Social History Smoking Status: Current Some Day Smoker Alcohol Use: occasionally Marital Status: single Housing Status: lives alone Occupation Status: employed Current/Historical Medications No Active Prescriptions or Reported Meds Allergies Uncoded Allergies: POLLENS AND DUST (Allergy, Unknown, itchy eyes and sneezing, 08/10/14) BLOOD THINNERS (Adverse Reaction, Severe, VONWILLEBRAND DISEASE, 05/16/16) Physical Exam Vital Signs Date Time Temp Pulse Resp B/P (MAP) Pulse Ox O2 Delivery O2 Flow Rate FiO2 10/22/16 18:22 37.1 101 17 109/70 98 10/22/16 18:21 101 17 109/70 98 Room Air 10/22/16 16:37 37.1 114 17 113/73 98 Room Air Physical Exam VITAL SIGNS - Vital signs and nursing notes were reviewed. Patient is afebrile , normotensive, slightly tachycardic at a rate of 114 bpm, and is saturating well on room air 90%. GENERAL -26-year-old female appearing her stated age who is in no acute distress. Communicates well with provider and answers questions appropriately. SKIN - Without rashes. The skin overlying the right ankle is unremarkable. There is no edema or ecchymosis noted. No evidence of hemorrhage or bleeding. Skin is intact. EXTREMITIES - No clubbing or peripheral cyanosis. No pretibial edema present. There is tenderness palpation overlying the medial malleolar region extending into the medial aspect of the right foot. Near full range of motion. No neurovascular compromise identified. She is neurovascularly intact in the right lower extremity. There is no calf or knee tenderness identified on examination. +5/5 strength noted in UE/LE Medical Decision & Procedures ER Provider Diagnostic Interpretation: RIGHT ANKLE MIN 3 VIEWS ROUTINE CLINICAL HISTORY: Right medial ankle and foot pain following injury. COMPARISON: None FINDINGS: Alignment of the right ankle is anatomic. There is no acute fracture. Talar dome is intact. IMPRESSION: No acute fracture or dislocation of the right ankle. Electronically signed by: Blayne Foster M.D. 10/22/2016 5:31 PM Dictated Date/Time: 10/22/2016 5:30 PM RIGHT FOOT MIN 3 VIEWS ROUTINE CLINICAL HISTORY: Medial right foot and ankle pain following injury. COMPARISON: None FINDINGS: The tarsometatarsal joints are intact. There is no acute fracture within the right foot. No osseous lesion is identified. There is no radiographic evidence of a stress fracture. Joint spaces are preserved. IMPRESSION: No acute fracture or dislocation of the right foot. Electronically signed by: Blayne Foster M.D. 10/22/2016 5:32 PM Dictated Date/Time: 10/22/2016 5:31 PM Medications Administered Medications (Trade) Dose Ordered Sig/Yasmin Route Start Time Stop Time Status Last Admin Dose Admin Acetaminophen/ Hydrocodone Bitart ([place] 5/325 Tab) 1 tab NOW STAT PO 10/22/16 16:45 10/22/16 16:47 DC 10/22/16 16:54 1 TAB Medical Decision Patient was seen and evaluated as above. After obtaining a thorough history and physical examination the decision was made to obtain radiographs of the affected region. She denied chance of . She was given [place] for pain. Results as above. No acute fracture. I suspect the patient is likely experiencing a sprain. For this reason she'll be provided with a gel ankle splint and crutches. At this time she appears stable for discharge. No evidence of intra-articular hematoma or hemorrhage. Patient was educated on worrisome symptoms in which to return, educated upon management, had questions prior to discharge, and was discharged home in good condition. She is to follow -up with orthopedics regarding today's injury. In the evaluation and treatment of this patient, the following differential diagnoses were considered: Ankle Fracture, Ankle Sprain, Distal Fibula Fracture , Distal Tibia Fracture, Foot Fracture, [place]uve Fracture. Impression Primary Impression: Ankle pain, right Departure Information Dispostion Home / Self-Care Condition GOOD Prescriptions No Active Prescriptions or Reported Meds Referrals Tavo Durant M.D. (PCP) Harman Barrera D.O. Patient Instructions My [facility] Additional Instructions You have been treated in the Emergency Department for a right Ankle injury. You have received pain medicine in the emergency department which impairs your ability to operate a vehicle. It is illegal for you to drive after receiving these medicines. For pain control, you can use the following [id number] medicines (if >12 yo): - Regular strength (325mg/tab) Tylenol (acetaminophen) 2 tabs every 4-6 hours as needed. Do not exceed 12 tablets in a 24 hour period. Avoid taking more than 3 grams (3000 mg) of Tylenol per day. This includes any other sources of acetaminophen you may take on a regular basis. - Regular strength (200 mg/tab) Advil (ibuprofen) 1-2 tabs every 4-6 hours as needed. Do not exceed a dose of 3200 mg per day. If this is a recent injury (<24 hrs), ice can be applied to the area of pain for the first 3 days to help decrease pain and inflammation. You have been provided the number for an Orthopaedic Surgeon. You should call this number as soon as possible to establish a follow-up visit from today's Emergency Department visit. (Dr. Barrera) Keep the ankle brace/splint in place until cleared by Orthopedics. Use the crutches you have been provided to keep ALL weight off of the ankle until weight bearing is tolerable. Return to the Emergency Department if your current symptoms worsen despite treatment course outlined above, or if you develop any of the following symptoms : intractable pain despite aforementioned treatment course or new onset of numbness or tingling of the foot. Please return to the emergency department with any new/concerning symptoms. Problem Qualifiers Primary Impression: Ankle pain, right Chronicity: acute Qualified Codes: M25.571 - Pain in right ankle and joints of right foot
--- NOTE | 2016-10-22 17:32 | DIAGNOSTIC IMAGING REPORT ---
RIGHT ANKLE MIN 3 VIEWS ROUTINE CLINICAL HISTORY: Right medial ankle and foot pain following injury. COMPARISON: None FINDINGS: Alignment of the right ankle is anatomic. There is no acute fracture. Talar dome is intact. IMPRESSION: No acute fracture or dislocation of the right ankle. Electronically signed by: Blayne Foster M.D. 10/22/2016 5:31 PM Dictated Date/Time: 10/22/2016 5:30 PM
--- NOTE | 2016-10-22 17:33 | DIAGNOSTIC IMAGING REPORT ---
RIGHT FOOT MIN 3 VIEWS ROUTINE CLINICAL HISTORY: Medial right foot and ankle pain following injury. COMPARISON: None FINDINGS: The tarsometatarsal joints are intact. There is no acute fracture within the right foot. No osseous lesion is identified. There is no radiographic evidence of a stress fracture. Joint spaces are preserved. IMPRESSION: No acute fracture or dislocation of the right foot. Electronically signed by: Blayne Foster M.D. 10/22/2016 5:32 PM Dictated Date/Time: 10/22/2016 5:31 PM
[2016-10-22 18:22] VITALS: BP 109/70; PULSE 101; TEMP 37.1; O2SAT 98
== END 2016-10-22 18:23 | disposition home or self-care (01) ==
LOC: C.EDB 16:35 → C.EDD 18:23
DX: M25.571 Pain in right ankle and joints of right foot (principal); D68.0 Von Willebrand disease; F84.0 Autistic disorder; F17.210 Nicotine dependence, cigarettes, uncomplicated

== ENCOUNTER 2017-05-11 00:27 | Emergency (ER) | payer OTHER ==
[~2017-05-11] VITALS: Ht 165.1 cm; Wt 74.6 kg
[2017-05-11 00:30] VITALS: TEMP 36.9; Ht 165.1 cm; Wt 74.6 kg
[2017-05-11] MEDS ORDERED: KETOROLAC TROMETHAMINE 60 MG/2 ML VIAL IM STA (00:51)
[2017-05-11] MEDS ORDERED: HYDROCODONE/ACETAMOPHEN 5/325MG TAB PO ONE (01:00)
[2017-05-11] MEDS ORDERED: METH4PAK PO (02:05)
[2017-05-11 02:10] VITALS: BP 109/63; PULSE 78; O2SAT 97
--- NOTE | 2017-05-11 06:41 | DIAGNOSTIC IMAGING REPORT ---
CHEST 2 VIEWS ROUTINE CLINICAL HISTORY: Fall with rib pain and Cough. Dyspnea COMPARISON STUDY: 07/01/2016 FINDINGS: Lungs are clear. Diaphragms are smooth. No evidence for cardiac enlargement. IMPRESSION: Negative chest. The above report was generated using voice recognition software. It may contain grammatical, syntax or spelling errors. Electronically signed by: Travis Bess M.D. 05/11/2017 6:40 AM Dictated Date/Time: 05/11/2017 6:37 AM
--- NOTE | 2017-05-12 05:29 | EMERGENCY ROOM VISIT NOTE ---
History First contact with patient: 00:35 Chief Complaint: RIB PAIN Stated Complaint: CHRONIC RIB/BACK PAIN AND BAD COUGH History of Present Illness The patient is a 26 year old female who presents to the Emergency Room with complaints of vague back and rib pain after falling about a week ago. The patient states that she fell backwards on steps, and struck her mid back. She has had some mild pain since then, however things worsened over the past 2-3 days as she has developed a cough. The patient describes her pain as dull, nonradiating, and 6/10. She does not have fever or chills. No distinct breathing difficulties. She did not suffer additional injury with her fall. Review of Systems More than 10 systems were reviewed and otherwise negative with the exception of history of present illness. Past Medical/Surgical History Medical Problems: (1) Autistic Disorder, Residual State (2) Bronchitis (3) Hemoptysis Family History Patient reports no known family medical history. Social History Smoking Status: Never Smoker Alcohol Use: occasionally Marital Status: single Housing Status: lives alone Occupation Status: employed Current/Historical Medications Scheduled Methylprednisolone (Medrol Dosepak), 1 PKT PO DAILY Physical Exam Vital Signs Date Time Temp Pulse Resp B/P (MAP) Pulse Ox O2 Delivery O2 Flow Rate FiO2 05/11/17 02:10 78 16 109/63 97 05/11/17 01:00 18 109/86 05/11/17 00:57 94 99 05/11/17 00:47 101 18 98 Room Air 05/11/17 00:41 127/75 05/11/17 00:30 36.9 111 18 109/77 99 Room Air Physical Exam VITALS: Vitals are noted on the nurse's note and reviewed by myself. Vital signs stable. GENERAL: Well-developed, well-nourished, white female, who is in no acute distress and resting comfortably. Patient is cooperative with the examination. EARS: External ear normal. External auditory canals clear, tympanic membranes pearly guy without erythema or effusion bilaterally. NECK: Supple without nuchal rigidity. No lymphadenopathy. No thyromegaly. Cervical spine is nontender. HEART: Regular rate and rhythm without murmurs gallops or rubs. LUNGS: Mild rhonchi throughout ABDOMEN: Positive normal bowel sounds x 4. Soft, nontender, without masses or organomegaly. No guarding or rebound tenderness. MUSCULOSKELETAL: No muscle atrophy, erythema, or edema noted. Full range of motion without joint tenderness in all extremities. No reproducible tenderness throughout the chest wall, ribs, or back. Medical Decision & Procedures ER Provider Diagnostic Interpretation: CHEST 2 VIEWS ROUTINE CLINICAL HISTORY: Fall with rib pain and Cough. Dyspnea COMPARISON STUDY: 07/01/2016 FINDINGS: Lungs are clear. Diaphragms are smooth. No evidence for cardiac enlargement. IMPRESSION: Negative chest. Medications Administered Medications (Trade) Dose Ordered Sig/Yasmin Route Start Time Stop Time Status Last Admin Dose Admin Ketorolac Tromethamine (Toradol Inj) 60 mg NOW STAT IM 05/11/17 00:51 05/11/17 00:53 DC 05/11/17 00:59 60 MG Acetaminophen/ Hydrocodone Bitart ([place] 5/325 Tab) 1 tab NOW ONCE PO 05/11/17 01:00 05/11/17 01:01 DC 05/11/17 00:58 1 TAB ED Course Physical exam and history were performed. Nursing notes, EMR, and Medication List were personally reviewed. Patient appears to have fallen several days ago with injury to her back. On examination she does not have reviewed his tenderness or obvious outward signs of trauma. There is no neurologic deficit. She is not complaining of a cough that seems to exacerbate her symptoms. The patient was given IM Toradol as well as a dose of oral Vicodin here in the department. X-rays were performed and do not show evidence of acute process. Overall I suspect patient's back and rib symptoms are musculoskeletal in nature. She does appear to have a bronchitis based on physical exam. She will be given a Medrol Dosepak. She will be treated conservatively and asked to follow with PCP for further management. She was otherwise invited back to the ER with any new, worsening, or concerning symptoms. The chart was completed utilizing [employer] Speech Voice Recognition Software. Grammatical errors, random word insertions, pronoun errors, and incomplete sentences are an occasional consequence of this system due to software limitations, ambient noise, and hardware issues. Any formal questions or concerns about the content, text, or information contained within the body of this dictation should be directly addressed to the provider for clarification. . Medical Decision Differential diagnosis: Etiologies such as infections, reactive airway disease, pneumonia, pneumothorax , COPD, CHF, cardiac ischemia, pulmonary embolism, musculoskeletal, gastrointestinal, as well as others were entertained. Impression Primary Impression: Acute bronchitis Additional Impressions: Back pain Fall Departure Information Dispostion Home / Self-Care Condition GOOD Prescriptions Methylprednisolone (MEDROL DOSEPAK) 4 Mg Jai 1 PKT PO DAILY, #1 PKT Prov: Emiliano Adame PA-C 05/11/17 Forms HOME CARE DOCUMENTATION FORM, IMPORTANT VISIT INFORMATION Patient Instructions My [facility] Additional Instructions You were seen and evaluated today on an emergency basis only. This is not a substitute for, or an effort to provide, complete comprehensive medical care. It is not possible to recognize and treat all injuries or illnesses in a single emergency department visit. For this reason it is recommended that you followup with your primary care physician in the next 2-3 days for recheck. For baseline pain relief you may alternate ibuprofen and acetaminophen every 4 hours for pain control. Take 600 mg ibuprofen (Advil) and then 4 hours later take 1000 mg acetaminophen (Tylenol). Do not take more than 3000 mg acetaminophen in a single day. Take a Medrol Dosepak as prescribed Do not lift greater than 20 pounds for the next week You are welcome to return to the emergency department anytime with new, worsening, or concerning symptoms. Problem Qualifiers
== END 2017-05-11 02:10 | disposition home or self-care (01) ==
LOC: C.EDB 00:28
DX: J20.9 Acute bronchitis, unspecified (principal); M54.9 Dorsalgia, unspecified; W10.9XXA Fall (on) (from) unspecified stairs and steps, initial encounter; W22.8XXA Striking against or struck by other objects, initial encounter; F84.0 Autistic disorder